=== PATIENT | male | born 1985 | race Caucasian/White ===

== ENCOUNTER 2024-07-23 08:53 | Inpatient (IN) | payer OTHER ==
[2024-07-23 10:20] VITALS: BMI 20.6
[2024-07-23] MEDS ORDERED: chlordiazePOXIDE HCL 25 MG CAPSULE ONE (13:00)
[2024-07-23] MEDS: chlordiazePOXIDE HCL 25 MG CAPSULE PO ONE (13:04)
[2024-07-23] MEDS ORDERED: IBUPROFEN 400 MG TABLET (FP) PO PRN (14:05)
[2024-07-23] MEDS ORDERED: MAGNESIUM HYDROX 2400MG/30ML ORAL SUSPENSION 30 ML CUP PO PRN (14:05)
[2024-07-23] MEDS ORDERED: guaiFENesin 600 MG TABLET.ER (FP) PO PRN (14:05)
[2024-07-23] MEDS ORDERED: MAG HYDROX/AL HYDROX/SIMETH 30 ML UNIT-DOSE CUP PO PRN (14:05)
[2024-07-23] MEDS ORDERED: ACETAMINOPHEN 325 MG TABLET (FP) PO PRN (14:05)
[2024-07-23] MEDS ORDERED: NALOXONE (NARCAN) HCL 4 MG/0.1 ML SPRAY NS PRN (14:05)
[2024-07-23] MEDS ORDERED: DICYCLOMINE HCL 10 MG CAPSULE PO PRN (14:05)
[2024-07-23] MEDS ORDERED: POLYETHYLENE GLYCOL (HEALTHYLAX) 3350 17 GM PACKET PO PRN (14:05)
[2024-07-23] MEDS ORDERED: BENZOCAINE/MENTHOL (CHLORASEPTIC ) LOZENGE MM PRN (14:05)
[2024-07-23] MEDS ORDERED: LOPERAMIDE HCL 2 MG CAPSULE PO PRN (14:05)
[2024-07-23] MEDS ORDERED: BENZONATATE 200 MG CAPSULE PO PRN (14:05)
[2024-07-23] MEDS ORDERED: NALOXONE HCL 0.4 MG/ML VIAL IM PRN (14:05)
[2024-07-23] MEDS ORDERED: BISMUTH SUBSALICYLATE 524 MG/30 ML PO PRN (14:05)
[2024-07-23] MEDS: hydrOXYzine PAMOATE 25 MG CAPSULE (FP) PO PRN (14:39)
[2024-07-23] MEDS ORDERED: METHOCARBAMOL 500 MG TABLET ONE (14:39)
[2024-07-23] MEDS: METHOCARBAMOL 500 MG TABLET PO PRN (14:39)
[2024-07-23] MEDS ORDERED: hydrOXYzine PAMOATE 25 MG CAPSULE (FP) PO ONE (14:39)
[2024-07-23] MEDS: chlordiazePOXIDE HCL 25 MG CAPSULE PO SCH (17:06)
[2024-07-23] MEDS: chlordiazePOXIDE HCL 25 MG CAPSULE PO PRN (19:00)
[2024-07-23] MEDS: IBUPROFEN 600 MG TABLET (FP) PO PRN (19:01)
[2024-07-23] MEDS: THIAMINE 100 MG TABLET PO SCH (22:08)
[2024-07-23] MEDS: MELATONIN 5 MG TABLETS PO SCH (22:08)
[2024-07-24 09:24] LABS: HEMATOCRIT 40.8 % (35.4-49); MCH 33.4 pg (25.7-33.7); MCHC 34.3 g/dl (32.0-35.9); MEAN CELL VOLUME 97.6 fl (80-96); MEAN PLT VOLUME 7.5 fl (7.5-11.1); PLATELET COUNT 181 10^3/uL (134-434); RBC 4.18 M/mm3 (4.00-5.60); RDW 14.5 % (11.9-15.9); WHITE BLOOD COUNT 3.9 K/mm3 (4.0-10.0)
[2024-07-24 09:25] LABS: CHLORIDE 96 mmol/L (98-107); POTASSIUM 3.7 mmol/L (3.5-5.1); SODIUM 135 mmol/L (136-145)
[2024-07-24 09:27] LABS: CALCIUM 9.3 mg/dL (8.5-10.1)
[2024-07-24 09:28] LABS: ANION GAP 9 mmol/L (4-13); BLOOD UREA NITROGEN 9.6 mg/dL (7-18); CO2 30 mmol/L (21-32); GLUCOSE,RANDOM 127 mg/dL (74-106)
[2024-07-24 09:31] LABS: CREATININE 0.7 mg/dL (0.55-1.3); SGOT/AST 263 U/L (15-37); SGPT/ALT 156 U/L (13-61)
[2024-07-24 09:33] LABS: TOT PROT 7.9 g/dl (6.4-8.2)
[2024-07-24 09:34] LABS: ALK PHOS 93 U/L (45-117)
[2024-07-24] MEDS: PRENATAL VITAMINS W/ FOLIC ACID TABLET (FP) PO SCH (10:37)
[2024-07-25] MEDS: chlordiazePOXIDE HCL 25 MG CAPSULE PO SCH (05:17)
[2024-07-25] MEDS: ONDANSETRON *ODT* 4 MG TABLET SL PRN (17:07)
[2024-07-25] MEDS: DOXEPIN HCL 10 MG CAPSULE PO PRN (22:06)
[2024-07-26] MEDS: chlordiazePOXIDE HCL 10 MG CAPSULE PO SCH (05:12)
[2024-07-26] MEDS ORDERED: hydrOXYzine PAMOATE 50 MG CAPSULE (FP) PO PRN (14:08)
[2024-07-26] MEDS: QUEtiapine FUMARATE 25 MG TABLET PO ONE (15:05)
[2024-07-26] MEDS: QUEtiapine FUMARATE 50 MG TABLET PO ONE (15:07)
[2024-07-26] MEDS: chlordiazePOXIDE HCL 10 MG CAPSULE PO PRN (18:04)
[2024-07-26 18:05] VITALS: BP 108/79; PULSE 110; RESP 17; TEMP 98.7
[2024-07-26 19:10] LABS: POTASSIUM 3.5 mmol/L (3.5-5.1)
[2024-07-26 19:14] LABS: ALBUMIN 3.8 g/dl (3.4-5.0); CALCIUM 9.8 mg/dL (8.5-10.1)
[2024-07-26 19:17] LABS: BILIRUBIN,DIRECT 0.5 mg/dL (0.0-0.2); CREATININE 0.8 mg/dL (0.55-1.3)
[2024-07-26 19:19] LABS: TOT PROT 7.3 g/dl (6.4-8.2)
[2024-07-26] MEDS ORDERED: DOXEPIN HCL 25 MG CAPSULE PO PRN (22:00)
[2024-07-27] MEDS ORDERED: chlordiazePOXIDE HCL 10 MG CAPSULE PO SCH (05:00)
[2024-07-28] MEDS ORDERED: chlordiazePOXIDE HCL 10 MG CAPSULE PO ONE (05:00)
== END 2024-07-26 19:52 | disposition left against medical advice (07) | DRG 770 ==
LOC: YASAS 08:53 → Y6N 14:45
PROVIDERS: ADMIT Surgery; ATTEND Family Medicine Addiction Medicine
PROC: HZ2ZZZZ Detoxification Services for Substance Abuse Treatment (ICD-10-PCS; principal; 2024-07-23)
DX: F10.230 Alcohol dependence with withdrawal, uncomplicated (principal); F12.20 Cannabis dependence, uncomplicated; F19.282 Other psychoactive substance dependence with psychoactive substance-induced sleep disorder; F10.24 Alcohol dependence with alcohol-induced mood disorder; F32.A Depression, unspecified; Z87.891 Personal history of nicotine dependence; Z62.810 Personal history of physical and sexual abuse in childhood; Z63.8 Other specified problems related to primary support group
CPT/HCPCS: 36415; 80053; 80076; 80305; 80307; 85027; 86780; 93005; 93010; Q0162